=== PATIENT | male | born 1990 | race Asian ===

== ENCOUNTER 2023-07-31 06:52 | Day surgery (SDC) | payer OTHER, SELFPAY ==
[2023-07-31] VITALS (8 sets, daily range): BP systolic 96–129; BP diastolic 53–78; PULSE 66–73; RESP 10–18; TEMP 35.9–36.8; O2SAT 98–100; BMI 29.8
--- NOTE | 2023-07-31 | PATH_ITS ---
[facility] Accession Number: [id number] No. of containers..01 Tissue . 01 Material submitted: . submandibular gland - LEFT SUBMANDIBULAR MASS . 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 Margins of excision appear clear of neoplasm. V 08/07/2023 1520 Local . 01 Comment: The pleomorphic adenoma is characterized by circumscription, encapsulation, and a mixture of chondromyxoid stroma, ductal structures, and myoepithelial cells. Many of the ducts are distended and exhibit mature squamous metaplasia. There is no significant atypia. . 01 Electronically signed: . Ana Maria Tim MD, Pathologist NPI- [id number] . 01 Gross description: . The specimen is received in formalin labeled with the patient's name, , and left submandibular mass, and consists of a 7 g, spherical, unremarkable, isbell soft tissue fragment measuring 2.6 x 2.5 x 2.0 cm. The external surface is inked blue. The specimen is serially sectioned into a isbell to brown, mottled, firm cut surface grossly approaching the entire inked surface. Financial Underwriter sections are submitted as follows: A1: Intact slice 2. A2: Intact slice 4. A3: Intact slice 6. A4: Entire slice 8 perpendicular. ([id number]) /FRR 08/02/2023 1507 Local . 01 Pathologist provided ICD-10: D11.9 . 01 CPT . 214384 Specimen Comment: A courtesy copy of this report has been sent to [phone] Performed at: 01 [facility] [address] [place] [address] Suite [facility], [place], [place] [id number] MD Ventura Blackburn MD Phone: [phone]
--- NOTE | 2023-07-31 07:24 | PM.PREOP ---
Pre-operative Note Interval Note History & Physical reviewed/Exam performed by Physician: Yes Changes to H&P: No
--- NOTE | 2023-07-31 07:24 | PM.OP.1 ---
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 Following discussion of the material risks benefits complications and alternatives, he elected to proceed. Surgeon: Umberto Harrell Surgical Scrub Technician: Dashawn Lyman Anesthesia Type: General and Local Operative Notes Findings: 2.5 cm firm well-circumscribed mass abutting posterior left submandibular gland, completely excised, [place] gland iintact Specimen(s): other (Left submandibular gland mass) Estimated Blood Loss (mL): 5 Procedure in detail: Following identification and confirmation of consent as well as the LEFT operative side, patient was brought to the operating room suite and placed in the supine position. General endotracheal anesthesia was administered the table was turned left side out with the head turned to the right. A proposed incision was marked in ink 2 fingerbreadths inferior to the mandible approximately 8 cm in length and infiltrated with 2% lidocaine 1 100,000 epinephrine. Following sterile prep and drape, a 15 blade incised the skin, subcutaneous tissue, and platysma and sharp and blunt dissection proceeded down to the inferior border of the mass, abutting the posterior surface of the submandibular gland. Sharp and blunt dissection proceeded directly on the mass circumferentially, with the anterior border of the SCM exposed, until the mass was free and removed. The posterior surface of the intact SMG was visibile, but facial artery and veins left intact. Minimal hemostasis was required with bipolar cautery, followed by irrigation of the wound with betadine. The platysma was closed with interrupted 3-0 chromic followed by additional interrupted suture for the subcutaneous tissue and deep dermis, followed by running 5 0 nylon to the skin. Antibiotic ointment and dressing placed. Sponge and needle counts were correct and he was extubated in the operating room taken recovery room in stable condition without known complication. The surgical resident was required due to the complexity of the case and the risks to the nerves and vessels of the neck. Complications: none Post-operative Condition: stable Disposition: same day surgery Plan for aftercare: Ice to the incision as tolerated 24-48 hours, Vaseline to the incision at all times, pressure for any bleeding. No water exposure for 24 hours. Tylenol alternating with Advil for pain control, oxycodone for breakthrough pain. Follow-up as scheduled 1 week for suture removal.
[2023-07-31] MEDS: LACTATED RINGERS 1,000 ML 42 ML IV (07:29)
--- NOTE | 2023-07-31 08:15 | SUR.OPER ---
Supine on padded OR bed, head on pillow, arms padded, left arm tucked at side, legs uncrossed, safety belt at thigh, tape over blanket over lower legs .
[2023-07-31] MEDS: LIDOCAINE 2% W/EPI INJ 20 ML INJ (08:29)
--- NOTE | 2023-07-31 09:02 | SUR.OPER ---
NEOSPORIN OINTMENT TO WOUND
== END 2023-07-31 09:58 | disposition home or self-care (01) ==
PROVIDERS: PCP Student in an Organized Health Care Education/Training Program; Referring Provider Otolaryngology; Visit Provider Otolaryngology
PROC: 0HB1XZZ Excision of Face Skin, External Approach (ICD-10-PCS; CPT 42440; principal; 2023-07-31 07:45)
DX: D11.9 Benign neoplasm of major salivary gland, unspecified (principal)
CPT/HCPCS: 42440; J0330; J1100; J2250; J2405; J2704; J3010